=== PATIENT | male | born 1975 | race Caucasian/White ===

== ENCOUNTER 2020-10-08 21:59 | Emergency (ER) | payer BC ==
[~2020-10-08] VITALS: Ht 195.6 cm; Wt 110.0 kg
[2020-10-09] MEDS ORDERED: MORPHINE SULFATE 4 MG/ML, 1ML IVPush PRN (01:00)
[2020-10-09] MEDS ORDERED: SODIUM CHLORIDE FLUSH 10ML SYR IVF ONE (01:00)
[2020-10-09] MEDS ORDERED: PROPOFOL 10 MG/ML, 20ML ONE (01:15)
[2020-10-09] MEDS ORDERED: MORPHINE SULFATE 4 MG/ML, 1ML ONE (01:16)
[2020-10-09] MEDS ORDERED: ONDANSETRON 2MG/ML, 2ML ONE (01:16)
[2020-10-09] MEDS ORDERED: PROPOFOL 10 MG/ML, 20ML IVPush ONE (01:30)
--- NOTE | 2020-10-09 01:42 | NUR ---
LATE ENTRY D/T PT CARE: PT MOVED TO ROOM 8 IN PREPARATION FOR CONSCIOUS SEDATION AND CLOSED REDUCTION OF THE R WRIST. CONSENT SIGNED AND ROOM/PT READIED FOR PROCEDURE. 0129: TIME OUT COMPLETED AND PT/STAFF IN AGREEMENT 0130: MEDICATED BY ERP FOR SEDATION, TOTAL 120MG PROPOFOL GIVEN THROUGHOUT PROCEDURE 0134: TECH/ERP PLACED SPLINT 0145: PROCEDURE COMPLETE; PT SPEAKING WITH ERP AND FOLLOWING COMMANDS. AIRWAY PATENT, MANAGING OWN SECRETIONS.
[2020-10-09 01:49] VITALS: BP 149/88
[2020-10-09] MEDS ORDERED: IBUPROFEN 600 MG TABLET PO ONE (02:00)
[2020-10-09] MEDS ORDERED: HYDROcodone/APAP 5/325 TABLET PO PRN (02:00)
[2020-10-09] MEDS ORDERED: IBUPROFEN 600 MG TABLET ONE (02:08)
--- NOTE | 2020-10-09 02:52 | NUR ---
DC EDUCATION PROVIDED, PT DEMONSTRATES UNDERSTANDING. PT REFUSING [facility] FOR TRANSPORT. PT ELECTING TO WALK TO HOTEL. PT A&OX4, AMBULATORY WO ASSISTANCE AND AT BASELINE MENTATION
== END 2020-10-09 02:55 | disposition home or self-care (01) ==
LOC: ED 23:59
DX: S52.531A Colles' fracture of right radius, initial encounter for closed fracture (principal); W18.30XA Fall on same level, unspecified, initial encounter; Y93.89 Activity, other specified; Y92.89 Other specified places as the place of occurrence of the external cause; Y99.8 Other external cause status
CPT/HCPCS: 25605; 99152; 99285